=== PATIENT | male | born 1995 | race Caucasian/White ===

== ENCOUNTER 2017-05-16 04:57 | Emergency (ER) | payer OTHER ==
[~2017-05-16] VITALS: Ht 188 cm; Wt 59.0 kg
[2017-05-16 05:08] VITALS: BP 127/83
== END 2017-05-16 07:06 | disposition left against medical advice (07) ==
LOC: EDBD 04:57 → ER 05:01
DX: R10.9 Unspecified abdominal pain (principal); Z53.21 Procedure and treatment not carried out due to patient leaving prior to being seen by health care provider
CPT/HCPCS: 74176